=== PATIENT | female | born 1985 | race Caucasian/White ===

== ENCOUNTER 2017-05-08 11:20 | Emergency (ER) | payer MEDICAID, OTHER ==
[~2017-05-08] VITALS: Ht 157.5 cm; Wt 80.0 kg
[2017-05-08 11:23] VITALS: Ht 157.5 cm; Wt 80.0 kg
[2017-05-08] MEDS ORDERED: KETOROLAC 60 MG INJ IM STA (12:10)
--- NOTE | 2017-05-08 13:48 | RADRPT ---
PROCEDURE: XR Chest. CLINICAL INDICATION: Chest pain. TECHNIQUE: Single frontal view. COMPARISON: None. FINDINGS: The lungs are clear. The heart size is normal. There is no pleural effusion. There is no pneumothorax. IMPRESSION: 1. Normal chest radiograph. RPTAT: QQ .Kam Wilkerson MD, Date Time Electronically viewed and signed by .Kam Wilkerson MD, on 05/08/2017 13:47 .R/
[2017-05-08] MEDS ORDERED: LORAZEPAM 0.5 MG TAB PO ONE (14:30)
[2017-05-08] MEDS ORDERED: IBUP-1542 PO (14:45)
--- NOTE | 2017-05-08 15:11 | ERD ---
ER Documentation Chief Complaint Date/Time DATE: 05/08/17 TIME: 15:08 Chief Complaint cwp today, pain changes with movement and breathing HPI 31-year-old female patient with a past medical history of hypothyroidism presents to the ED complaining of chest pain that started earlier today. Reports that it was a sudden onset and is located in the anterior chest region and does not radiate. Reports that when she is moving back and forth and turning her chest region, it worsens the pain. States that it also slightly hurts when she takes deep breaths. Denies any recent traveling. Denies any leg swelling. Denies any family history of heart attacks. Denies any smoking or drug use. Denies any wheezing, cough, fever, chills, dyspnea on exertion, or abdominal pain, nausea, vomiting, diarrhea, rashes. ROS All systems reviewed and are negative except as per history of present illness. Medications Home Meds Active Scripts Ibuprofen* (Motrin*) 600 Mg Tab, 600 MG PO Q6, #30 TAB Prov:GRISELDA TORREZ PA-C 05/08/17 Allergies Allergies: Coded Allergies: No Known Allergy (Verified Allergy, Unknown, 01/04/08) PMhx/Soc History of Surgery: Yes (CS X2.CHOLECYSTECTOMY) Anesthesia Reaction: No Hx Neurological Disorder: No Hx Respiratory Disorders: No Hx Cardiac Disorders: No Hx Psychiatric Problems: No Hx Miscellaneous Medical Probl: Yes (HYPOTHYROIDISM) Hx Alcohol Use: Yes (OCC) Hx Substance Use: No Hx Tobacco Use: No Physical Exam Vitals Vital Signs Date Time Temp Pulse Resp B/P Pulse Ox O2 Delivery O2 Flow Rate FiO2 05/08/17 11:23 98.1 86 18 137/71 99 Physical Exam Const: [id number], well-nourished. In no acute distress. Head: Atraumatic, normocephalic Eyes: Normal Conjunctiva without injection. No purulent discharge. PERRL. EOMI ENT: Normal external ear. Ear canal without erythema. Tympanic membrane pearly nicholson without effusion or bulging. Nasal canal clear with normal turbinates. Moist oropharynx without tonsillar exudates. Non-erythematous pharynx. Uvula midline. No drooling. No trismus. Neck: Full range of motion. No meningismus. No cervical lymphadenopathy. Resp: Clear to auscultation bilaterally. No wheezing, rhonchi, rales, or crackles. No accessory muscle use. No retractions. Cardio: Regular rate and rhythm. No murmurs, rubs or gallops. Chest: Tenderness palpation of the anterior chest region. Pain is reproducible. No rashes noted. Abd: Soft, non tender, non distended. Normal bowel sounds. No palpable masses. No rebound tenderness. No guarding. Skin: No petechiae or rashes Back: No midline tenderness. No CVA tenderness. Ext: No cyanosis, or edema. Neur: Awake and alert. Psych: Normal Mood and Affect Results 24 hrs Current Medications Medications (Trade) Dose Ordered Sig/Nicole Route PRN Reason Start Time Stop Time Status Last Admin Dose Admin Ketorolac Tromethamine (Toradol) 60 mg ONCE STAT IM 05/08/17 12:10 05/08/17 12:11 DC 05/08/17 12:49 Lorazepam (Ativan) 0.5 mg ONCE ONCE PO 05/08/17 14:30 05/08/17 14:31 DC 05/08/17 14:14 Procedures/MDM This is a 31-year-old female patient with a past medical history of hypothyroidism presents to the ED complaining of chest pain that started earlier today. Patient is afebrile and nontoxic-appearing. Patient has normal vital signs. Patient was further evaluated with an EKG and chest x-ray. Patient was also given 0.5 mg Ativan and Toradol here in the ED. Negative . Ativan was given to patient since she stated she felt anxiety. PROCEDURE: XR Chest. CLINICAL INDICATION: Chest pain. TECHNIQUE: Single frontal view. COMPARISON: None. FINDINGS: The lungs are clear. The heart size is normal. There is no pleural effusion. There is no pneumothorax. IMPRESSION: 1. Normal chest radiograph. EKG reviewed and interpreted by Dr. Fu Rate/Rhythm: [78 bpm, Normal Sinus Rhythm] No ectopy, no ST elevations, normal axis. QRS, ST, T-waves: [No changes consistent w/ acute ischemia] Impression: [No evidence of ischemia or arrhythmia] Since patient reports that she has pain with movement as well as palpation to the anterior chest, patient symptoms are likely due to chest wall pain vs. anxiety. Low suspicion for thyroid etiology, acute myocardial infarction, pneumothorax, anxiety, pneumonia, cardiac tamponade, pulmonary embolism, AAA, aortic dissection, Boerhaave's syndrome, cardiac dysrhythmias, meningitis, intracranial bleed, seizure, stroke, TIA or other emergent conditions. Discharge medications: Ibuprofen Follow up with primary care physician in 1-2 days. Instructed patient to return to the ED sooner for any worsening symptoms. Patient's questions were answered. Patient understood and agreed with discharge plan. Patient discharged stable. Departure Diagnosis: Primary Impression: Chest wall pain Condition: Stable Patient Instructions: Chest Wall Pain, Costochondritis Referrals: JUANA GARRETT MD (PCP) [facility] YOU HAVE RECEIVED A MEDICAL SCREENING EXAM AND THE RESULTS INDICATE THAT YOU DO NOT HAVE A CONDITION THAT REQUIRES URGENT TREATMENT IN THE EMERGENCY DEPARTMENT. FURTHER EVALUATION AND TREATMENT OF YOUR CONDITION CAN WAIT UNTIL YOU ARE SEEN IN YOUR DOCTORS OFFICE WITHIN THE NEXT 1-2 DAYS. IT IS YOUR RESPONSIBILITY TO MAKE AN APPOINTMENT FOR FOLOW-UP CARE. IF YOU HAVE A PRIMARY DOCTOR --you should call your primary doctor and schedule an appointment IF YOU DO NOT HAVE A PRIMARY DOCTOR YOU CAN CALL OUR PHYSICIAN REFERRAL HOTLINE AT IF YOU CAN NOT AFFORD TO SEE A PHYSICIAN YOU CAN CHOSE FROM THE FOLLOWING [facility] [address] [facility]. [facility] [address] [facility]. [facility] [address] [facility]. [facility] [address] [facility]. [facility] [address] [facility]. [facility]. [address] [facility]. [facility] YOU HAVE RECEIVED A MEDICAL SCREENING EXAM AND THE RESULTS INDICATE THAT YOU DO NOT HAVE A CONDITION THAT REQUIRES URGENT TREATMENT IN THE EMERGENCY DEPARTMENT. FURTHER EVALUATION AND TREATMENT OF YOUR CONDITION CAN WAIT UNTIL YOU ARE SEEN IN YOUR DOCTORS OFFICE WITHIN THE NEXT 1-2 DAYS. IT IS YOUR RESPONSIBILITY TO MAKE AN APPOINTMENT FOR FOLOW-UP CARE. IF YOU HAVE A PRIMARY DOCTOR --you should call your primary doctor and schedule and appointment IF YOU DO NOT HAVE A PRIMARY DOCTOR YOU CAN CALL OUR PHYSICIAN REFERRAL HOTLINE AT . IF YOU CAN NOT AFFORD TO SEE A PHYSICIAN YOU CAN CHOSE FROM THE FOLLOWING [facility]: [facility] [address] [place] [address] [facility] [address] [place] [address] [facility] + [facility] [address] [place] [address] [facility] URGENT CARE/SPECIALTIES Additional Instructions: Call your primary care doctor TOMORROW for an appointment during the next 1-2 days.See the doctor sooner or return here if your condition worsens before your appointment time. GRISELDA TORREZ PA-C May 08, 2017 15:11 GRISELDA TORREZ PA-C May 08, 2017 15:11
== END 2017-05-08 15:02 | disposition home or self-care (01) ==
LOC: FTE 11:20
DX: R07.89 Other chest pain (principal); E03.9 Hypothyroidism, unspecified
CPT/HCPCS: 71010; 93005; 96372; J1885; Z7502; Z7610

== ENCOUNTER 2019-01-17 08:42 | Emergency (ER) | payer OTHER ==
[~2019-01-17] VITALS: Wt 84.4 kg
[~2019-01-17 08:42] MED LIST: IBUP-1542 PO
[2019-01-17] MEDS ORDERED: ACETAMINOPHEN 325 MG TAB PO STA (10:09)
--- NOTE | 2019-01-17 10:37 | ERD ---
ER Documentation Chief Complaint Chief Complaint HEADCHE X2 WEEKS, PT 9 WKS PG, NO VB, HPI 33-year-old female (uncomplicated) states headache is occipital in nature and worsened last night does prompted patient to go to ED. Currently 9 weeks with a past medical history of hypothyroidism who presents with persistent headaches over the last 2 weeks. Patient describes an occipital type headache associated with nausea but no vomiting, intermittent dizziness but no lightheadedness, without blurry vision. Has tried Tylenol without any improvement in symptoms last dose taken last night. States she has noticed that her blood pressures have been elevated with highest reading being 152 systolic over 113 diastolic. States she is typically runs in the low 100s systolic. She has been attempting to contact her PRINTING SUPERVISOR but has been unsuccessful and states that she has follow-up this month on the . She otherwise denies abdominal pain, hematuria,chest pain, shortness of breath, fevers, chills urinary symptoms. Previous 2 pregnancies have been normal without any complications. ROS All systems reviewed and are negative except as per history of present illness. Medications Home Meds Active Scripts Ibuprofen* (Motrin*) 600 Mg Tab, 600 MG PO Q6, #30 TAB Prov:GRISELDA TORREZ PA-C 05/08/17 Allergies Allergies: Coded Allergies: No Known Allergy (Verified Allergy, Unknown, 01/04/08) PMhx/Soc History of Surgery: Yes (CS X2.CHOLECYSTECTOMY) Anesthesia Reaction: No Hx Neurological Disorder: No Hx Respiratory Disorders: No Hx Cardiac Disorders: No Hx Psychiatric Problems: No Hx Miscellaneous Medical Probl: Yes (HYPOTHYROIDISM) Hx Alcohol Use: Yes (OCC) Hx Substance Use: No Hx Tobacco Use: No Physical Exam Vitals Vital Signs Date Temp Pulse Resp B/P (MAP) Pulse Ox O2 O2 Flow FiO2 Time Delivery Rate 01/17/19 98.3 81 17 137/70 98 08:44 (92) Physical Exam I have reviewed the triage vital signs. Const: Well nourished, well developed, appears stated age Eyes: PERRL, no conjunctival injection HENT: NCAT, Neck supple without meningismus CV: RRR, Warm, well-perfused extremities RESP: CTAB, Unlabored respiratory effort GI: soft, non-tender, non-distended, no masses MSK: No gross deformities appreciated Skin: Warm, dry. No rashes Neuro: Alert, cafe or restaurant manager II-XII grossly intact. Sensation and motor function of extremities grossly intact. Psych: Appropriate mood and affect. Result Diagram: 01/17/19 1022 01/17/19 1022 Results 24 hrs Laboratory Tests Test 01/17/19 10:22 White Blood Count 6.4 10^3/ul Red Blood Count 4.44 10^6/ul Hemoglobin 12.6 g/dl Hematocrit 39.7 % Mean Corpuscular Volume 89.4 fl Mean Corpuscular Hemoglobin 28.4 pg Mean Corpuscular Hemoglobin Concent 31.7 g/dl Red Cell Distribution Width 18.6 % Platelet Count 345 10^3/UL Mean Platelet Volume 10.2 fl Immature Granulocytes % 0.200 % Neutrophils % 60.4 % Lymphocytes % 31.6 % Monocytes % 5.8 % Eosinophils % 1.4 % Basophils % 0.6 % Nucleated Red Blood Cells % 0.0 /100WBC Immature Granulocytes # 0.010 10^3/ul Neutrophils # 3.9 10^3/ul Lymphocytes # 2.0 10^3/ul Monocytes # 0.4 10^3/ul Eosinophils # 0.1 10^3/ul Basophils # 0.0 10^3/ul Nucleated Red Blood Cells # 0.0 10^3/ul Urine Color YELLOW Urine Clarity SLIGHTLY CLOUDY Urine pH 7.0 Urine Specific [place] 1.013 Urine Ketones NEGATIVE mg/dL Urine Nitrite NEGATIVE mg/dL Urine Bilirubin NEGATIVE mg/dL Urine Urobilinogen NEGATIVE mg/dL Urine Leukocyte Esterase 3+ Ean/ul Urine Microscopic RBC 1 /HPF Urine Microscopic WBC 7 /HPF Urine Squamous Epithelial Cells FEW /HPF Urine Hemoglobin NEGATIVE mg/dL Urine Glucose NEGATIVE mg/dL Urine Total Protein NEGATIVE mg/dl Sodium Level 140 mmol/L Potassium Level 4.3 mmol/L Chloride Level 105 mmol/L Carbon Dioxide Level 23 mmol/L Anion Gap 12 Blood Urea Nitrogen 7 mg/dl Creatinine 0.48 mg/dl Est Glomerular Filtrat Rate mL/min > 60 mL/min Glucose Level 95 mg/dl Calcium Level 9.9 mg/dl Total Bilirubin 0.2 mg/dl Direct Bilirubin 0.00 mg/dl Indirect Bilirubin 0.2 mg/dl Aspartate Amino Transf (AST/SGOT) 49 IU/L Alanine Aminotransferase (ALT/SGPT) 28 IU/L Alkaline Phosphatase 87 IU/L Total Protein 8.9 g/dl Albumin 4.6 g/dl Globulin 4.30 g/dl Albumin/Globulin Ratio 1.06 Current Medications Medications Dose Sig/Nicole Start Time Status Last (Trade) Ordered Route PRN Stop Time Admin Dose Reason Admin 650 mg ONCE STAT 01/17/19 DC 01/17/19 Acetaminophen PO 10:09 01/17/19 10:26 (Tylenol 10:14 Tab) Procedures/MDM This patient presents with a headache most consistent with primary headache. Differential diagnosis includes migraine versus tension type headache vs hea dache associated with preeclampsia, HELLP given . No headache red flags. Neurologic exam without evidence of meningismus, focal neurologic findings. Presentation not consistent with acute intracranial bleed to include SAH (lack of risk factors, headache history). Presentation not consistent with acute HAND MITER OPERATOR infection to include meningitis or brain abscess, Temporal arteritis unlikely given history and physical findings. Presentation not consistent with other acute, emergent causes of headache at this time. Plan to treat symptomatically with pain medication. No indication for imaging/LP at this time. ED course: UA without proteinuria H/H stable, platelet count normal Liver test without concerning rise in enzymes, advise repeat in 1 week with PMD/OBGYN Treated with tylenol for headache Given first trimester and elevated blood pressure advised to follow up closely with PRINTING SUPERVISOR provider for continued monitoring. Patient has follow up with PRINTING SUPERVISOR 01/30/19 Departure Condition: Stable Patient Instructions: Adapting to : First Trimester Additional Instructions: If symptoms do not improve or worsen you should proceed to nearest ED for further evaluation. It is important that you establish care with an PRINTING SUPERVISOR given your WILLIAM EUGENE PA-C Jan 17, 2019 10:37
[2019-01-17 12:03] VITALS: BP 129/78; PULSE 78; RESP 17
== END 2019-01-17 12:04 | disposition home or self-care (01) ==
LOC: FTE 08:42
DX: O99.89 Other specified diseases and conditions complicating pregnancy, childbirth and the puerperium (principal); R51 Headache; O99.281 Endocrine, nutritional and metabolic diseases complicating pregnancy, first trimester; E03.9 Hypothyroidism, unspecified; Z3A.01 Less than 8 weeks gestation of pregnancy
CPT/HCPCS: 80053; 81001; 85025; Z7610; 36415; 99283